=== PATIENT | male | born 1950 | race Caucasian/White ===

== ENCOUNTER 2017-02-28 08:09 | Emergency (ER) | payer MEDICARE ==
[~2017-02-28 08:09] MED LIST: ACETAMINOPHEN650 M1 PO; ALB/IPRATROPIUM/1 E1 INH; ALBUTEROL17 GM INH; AMOXICILLIN875 MG PO; AZITHROMYCIN500 MG PO; BAYER ASPIRIN325 M1 PO; CLOPIDOGREL75 MG PO; COATED ASPIRIN325 M1 PO; COMBIVENT U/D3 ML INH; CRESTOR40 MG PO; DOXYCYCLINE PO; IMDUR-ER60 M3 PO; ISOSORBIDE DINI30 MG PO; LIPITOR80 MG PO; LISINOPRIL2.5 MG PO; LOPRESSOR PO; LORTAB 7.5-3251 EACH PO; PLAVIX PO; ROBITUSSIN-DM118 ML PO; SYMBICORT INH; ZETIA PO
== END 2017-02-28 09:03 | disposition home or self-care (01) ==
LOC: CED 08:09
DX: K04.7 Periapical abscess without sinus (principal); I10 Essential (primary) hypertension; F17.200 Nicotine dependence, unspecified, uncomplicated
CPT/HCPCS: 96372; 99283